=== PATIENT | male | born 1980 | race Caucasian/White ===

== ENCOUNTER 2017-11-04 05:37 | Day surgery (SDC) | payer MEDICAID ==
[2017-11-04] MEDS ORDERED: LIDOCAINE 1% 2 ML INJ ID PRN (06:17)
[2017-11-04] MEDS ORDERED: LR 1,000 ML IV ONE (06:17)
--- NOTE | 2017-11-04 06:47 | PDHPUP ---
History & Physical Update H&P update statement: This history and physical update is based on an assessment of the patient which was completed after admission or registration (within 24 hours), but prior to the surgery/procedure.
[2017-11-04] MEDS ORDERED: MIDAZOLAM 2 MG/2 ML VIAL IVP ONE (06:54)
--- NOTE | 2017-11-04 06:58 | PDANEPAE ---
ANE History of Present Illness 37 yo male with RIH for lap repair. ANE Past Medical History - Cardiovascular History Hx Hypertension: No Hx Arrhythmias: No Hx Chest Pain: No Hx Coronary Artery / Peripheral Vascular Disease: No Hx CHF / Valvular Disease: No Hx Palpitations: No Cardiovascular History Comment: abnormal ekg- worked up by cardiology- everything was normal - Pulmonary History Hx COPD: No Hx Asthma/Reactive Airway Disease: No Hx Recent Upper Respiratory Infection: No Hx Oxygen in Use at Home: No Hx Sleep Apnea: Yes Sleep Apnea Screening Result - Last Documented: Positive Pulmonary History Comment: lore positive- had tonsillectomy a year and a half ago - no issues now - Neurologic History Hx Cerebrovascular Accident: No Hx Seizures: No Hx Dementia: No Neurologic History Comment: compressed disc in 2002 or 2003 did physical therapy no issues currently - Endocrine History Hx Diabetes: No Hypothyroid: No Obesity: no - Renal History Hx Renal Disorders: No - Liver History Hx Hepatic Disorders: No - Neurological & Psychiatric Hx Hx Neurological and Psychiatric Disorders: Yes Neurological / Psychiatric History Comment: adhd. anxiety. depression - Cancer History Hx Cancer: No - Congenital Disorder History Hx Congenital Disorders: No - GI History GERD: mild Hx Gastrointestinal Disorders: Yes Gastrointestinal History Comment: frequent constipation and diarrhea. rare GERD (less than 1/month) - Other Health History Other Health History: wears glasses. very dry hands can get to point where hands will crack and bleed - Chronic Pain History Chronic Pain: Yes (lower back, right hip, right foot) - Surgical History Prior Surgeries: tonsillectomy a year and a half ago for sleep apnea. wisdom teeth removed ANE Review of Systems Review of Systems: - Exercise capacity METS (RN): 4 METS - Systems Constitutional: Reports: no symptoms Cardiac: Reports: no symptoms Respiratory: Reports: no symptoms ANE Patient History - Allergies Allergies/Adverse Reactions: Penicillins Allergy (Verified 10/27/17 11:44) as - Home Medications Home Medications: Escitalopram Oxalate 10/27/17 [Last Taken 11/04/17 05:00] IBUPROFEN 10/27/17 [Last Taken 2 Weeks Ago ~10/21/17] VYVANSE 10/27/17 [Last Taken 11/03/17] traZODone 10/27/17 [Last Taken 11/03/17 19:00] - NPO status NPO Since - Liquids (Date): 11/04/17 NPO Since - Liquids (Time): 05:10 (1/2 glass of water with med) NPO Since - Solids (Date): 11/03/17 NPO Since - Solids (Time): 20:30 - Anes Hx Anes Hx: no prior problems - Smoking Hx Smoking Status: Former smoker (pt rarely smokes tobacco, occ smokes MJ) Marijuana use: Yes - Alcohol Use Alcohol Use: None - Family Anes Hx Family Anes Hx: neg - N/A Family Hx Anesthesia Complications: none ANE Labs/Vital Signs - Vital Signs Blood Pressure: 112/85 Heart Rate: 86 Respiratory Rate: 12 O2 Sat (%): 99 Height: 170.18 cm Weight: 77.111 kg ANE Physical Exam - Airway Neck exam: FROM Mallampati Score: Class 2 Mouth exam: normal dental/mouth exam - Pulmonary Pulmonary: clear to auscultation - Cardiovascular Cardiovascular: regular rate and rhythym - ASA Status ASA Status: II ANE Anesthesia Plan Anesthesia Plan: general endotracheal anesthesia
[2017-11-04] MEDS ORDERED: LIDOCAINE 1% 300 MG/30 ML SDV ONE (07:08)
[2017-11-04] MEDS ORDERED: BUPIVACAINE 0.5% 30 ML SDV ONE (07:09)
[2017-11-04] MEDS ORDERED: fentaNYL 100 MCG/2 ML INJ ONE ×3 (07:30→09:10)
[2017-11-04] MEDS ORDERED: DEXAMETHASONE 4 MG/ML VIAL ONE (07:30)
[2017-11-04] MEDS ORDERED: PROPOFOL 200 MG/20 ML VIAL ONE (07:30)
[2017-11-04] MEDS ORDERED: LIDOCAINE 2% 5 ML SDV ONE (07:30)
[2017-11-04] MEDS ORDERED: ROCURONIUM 50 MG/5 ML VIAL ONE (07:30)
[2017-11-04] MEDS ORDERED: KETOROLAC 30 MG/1 ML SDV ONE (07:51)
[2017-11-04] MEDS ORDERED: ONDANSETRON 4 MG/2 ML VIAL ONE (07:51)
[2017-11-04] MEDS ORDERED: SUGAMMADEX SODIUM 200 MG/2 ML VIAL IVP ONE (08:20)
[2017-11-04] MEDS ORDERED: KETOROLAC 30 MG/1 ML SDV IVP ONE (08:38)
[2017-11-04] MEDS ORDERED: OXYCODONE/APAP 5/325 TAB PO PRN (08:38)
--- NOTE | 2017-11-04 08:38 | POSTOPPROG ---
Post Op Note Date of Operation: 11/04/17 Surgeon: Emerson Monteiro Lithographed Plate Inspector: none Anesthesiologist: Sorin Anesthesia: GET(General Endotracheal) Pre-op Diagnosis: RIH Post-op Diagnosis: BIH Procedure: Lap TEP Inguinal hernia repair 3-dmax Findings: direct inguinal hernia Inf/Abcess present in the surg proc area at time of surgery?: No Depth: Organ Space EBL: Minimal
[2017-11-04] MEDS ORDERED: ALBUTEROL 3 ML DEYVIAL IH PRN (08:50)
[2017-11-04] MEDS ORDERED: ACETAMINOPHEN 500 MG TAB PO PRN (08:50)
[2017-11-04] MEDS ORDERED: NALOXONE HCL 0.4 MG/ML INJ IVP PRN (08:50)
[2017-11-04] MEDS ORDERED: PROMETHAZINE HCL 25 MG/ML INJ IVP PRN (08:50)
[2017-11-04] MEDS ORDERED: LR 500 ML IV PRN (08:50)
--- NOTE | 2017-11-04 08:50 | POSTANESTH ---
Post Anesthetic Evaluation Cardiovascular Status: Normal, Stable Respiratory Status: Normal, Stable Level of Consciousness/Mental Status: Can Participate in Eval, Mildly Sleepy, Arousable Pain Control: Adequate, Prn Tx Ordered Nausea/Vomiting Control: Adequate, Prn Tx Ordered Complications Possibly Related to Anesthesia: None Noted
[2017-11-04] MEDS: fentaNYL 100 MCG/2 ML INJ IVP PRN ×2 (08:57→09:07)
[2017-11-04] MEDS ORDERED: DOCUSATE SODIUM 100 MG CAP PO SCH (09:00)
[2017-11-04] MEDS ORDERED: PROMETHAZINE HCL 25 MG/ML INJ ONE (09:10)
[2017-11-04] MEDS ORDERED: OXYCODONE/APAP 5/325 TAB ONE ×2 (09:10→09:34)
[2017-11-04] MEDS: OXYCODONE/APAP 5/325 TAB PO PRN ×2 (09:21→09:35)
[2017-11-04 09:24] VITALS: TEMP 97.5
[2017-11-04 09:46] VITALS: BP 118/74; PULSE 90; RESP 17; O2SAT 99
--- NOTE | 2017-11-04 15:12 | GOP ---
[f rep st] OPERATIVE REPORT DATE OF OPERATION: SURGEON: Emerson Monteiro MD ANESTHESIA: Emily Ospina MD. General endotracheal anesthesia was used. PREOPERATIVE DIAGNOSIS: Right inguinal hernia. POSTOPERATIVE DIAGNOSIS: Bilateral inguinal hernia. PROCEDURE PERFORMED: Laparoscopic bilateral inguinal hernia repair with 3DMax mesh, TEP, total extra peritoneal technique. FINDINGS: SPECIMENS: None. ESTIMATED BLOOD LOSS: Less than 15 mL. INDICATIONS: 37-year-old gentleman presents with right inguinal hernia. DESCRIPTION OF PROCEDURE: The patient was brought to the operating room. After induction of endotra cheal anesthesia in the supine position, abdomen was prepped with chlorhexidine and draped sterilely. Time-out procedure was then performed according to institutional standards. Local anesthetic was i nfused in skin and subcutaneous tissues of trocar sites as well as field block bilaterally. The prep eritoneal space is entered by making an incision infraumbilically, incising the anterior fascia, swee ping the rectus sheath laterally, then using a balloon dissector and a structural balloon to maintain the space at 15 torr with carbon dioxide. Working trocars are placed in the lower midline under dir ect visualization. The space is cleared on the right and left side using blunt dissection. The righ t side has a larger than the left direct inguinal hernia. There were bilateral small indirect hernia s. No lipomas of the cord. This space is cleared from the anterior superior iliac spine to the pubi c tubercle on either side. A 3DMax is unfurled and interposed between the hernia defect and the nam toneum on either side. After ensuring hemostasis, the working trocars are removed. The space is def lated, ensuring the mesh stayed in appropriate position. The fascia is then reapproximated using 0 V icryl and all 3 ports were reapproximated at the skin level using 4-0 Monocryl. Dermabond is applied . The patient was awakened, extubated, taken to recovery room in stable condition. Needle, instrume nt, and sponge counts verified to be correct x2. SURGEON: Emerson Monteiro MD /[id number]/MODL
== END 2017-11-04 11:15 | disposition home or self-care (01) ==
LOC: FSGY 05:37
PROVIDERS: ATTEND Surgery
PROC: 0YUA4JZ Supplement Bilateral Inguinal Region with Synthetic Substitute, Percutaneous Endoscopic Approach (ICD-10-PCS; principal; 2017-11-04 07:15)
DX: K40.20 Bilateral inguinal hernia, without obstruction or gangrene, not specified as recurrent (principal); Z88.0 Allergy status to penicillin
CPT/HCPCS: C1727; C1781; J1100; J1885; J2250; J2405; J2550; J2704; J3010